=== PATIENT | male | born 1940 ===

== ENCOUNTER → 2018-04-12 16:11 | Outpatient (CLI) | payer SELFPAY ==
[2018-04-12 16:24] LABS: BASOPHILS 0.4 % (0-2); EOSINOPHILS 0.5 % (0-7); HEMATOCRIT 39.8 % (42.0-54.0); HEMOGLOBIN 13.4 g/dL (13.5-17.5); LYMPHOCYTES 15.4 % (15-50); MCH 30.5 pg (26.0-34.0); MCHC 33.7 g/dL (31.0-37.0); MCV 90.5 fL (80.0-100.0); MEAN PLATELET VOLUME 11.1 fL (7.4-10.4); MONOCYTES 15.6 % (2-11); NEUTROPHILS 67.1 % (40-80); PLATELET COUNT 340 10x3/uL (130-400); RDW 13.1 % (11.5-14.5); WBC 14.3 10x3/uL (4.8-10.8)
[2018-04-12 16:59] LABS: ALBUMIN 3.1 g/dL (3.4-5.0); ANION GAP 13.4 mmol/L (8-16); BILIRUBIN - TOTAL 0.69 mg/dL (0.2-1.3); CALCIUM 9.3 mg/dL (8.5-10.1); CARBON DIOXIDE 29.2 mmol/L (21.0-32.0); CREATININE - SERUM 1.4 mg/dL (0.6-1.3); POTASSIUM - SERUM 3.6 mmol/L (3.5-5.1); PROTEIN - SERUM 7.4 g/dL (6.4-8.2)
== END | disposition home or self-care (01) ==
LOC: D.LABREF 16:11
PROVIDERS: Student in an Organized Health Care Education/Training Program
DX: R53.81 Other malaise (principal)